=== PATIENT | female | born 1980 | race Caucasian/White ===

== ENCOUNTER → 2024-10-10 | Outpatient (CLI) | payer MEDICAID, SELFPAY | END | disposition home or self-care (01) | LOC: MRI 09:45 | PROVIDERS: PCP Nurse Practitioner Family; Referring Provider Podiatrist; Visit Provider Podiatrist | DX: M76.62 Achilles tendinitis, left leg (principal) | CPT/HCPCS: 73721 ==

== ENCOUNTER → 2025-03-03 | Outpatient (CLI) | payer MEDICAID, SELFPAY ==
[2025-03-03 14:09] LABS: Free T3 2.9 pg/mL (2.18-3.98)
[2025-03-03 14:29] LABS: Amylase 40 U/L (28-100); CRP 8.23 mg/L (0.0-3.0); Lipase 35 U/L (13-75)
[2025-03-09 08:07] LABS: ACCA 8 units (0-90); ALCA 19 units (0-60); AMCA 146 units (0-100); Albumin 3.5 g/dL (2.9-4.4); Cytoplasmic Ab (C-ANCA) <1:20 titer (Neg:<1:20); Gamma Globulin 1.7 g/dL (0.4-1.8); Gastrin, Serum 23 pg/mL (0-115); Immunoglobulin A 149 mg/dL (87-352); Immunoglobulin G 1838 mg/dL (586-1602); Immunoglobulin M 165 mg/dL (26-217); PROEL- TOTAL PROTEIN 7.1 g/dL (6.0-8.5); Perinuclear Ab (P-ANCA) <1:20 titer (Neg:<1:20); Thyroxin Bind Glob (TBG) 21 ug/mL (13-39)
== END | disposition home or self-care (01) ==
LOC: LAB 11:42
PROVIDERS: PCP Nurse Practitioner Family; Referring Provider Internal Medicine Gastroenterology; Visit Provider Internal Medicine Gastroenterology
DX: Z12.11 Encounter for screening for malignant neoplasm of colon (principal)
CPT/HCPCS: 36415; 82150; 82652; 82784; 82941; 83516; 83690; 84165; 84439; 84442; 84443; 84481; 85652; 86003; 86005; 86036; 86037; 86140; 86225; 86235; 86255; 86334; 86376; 86671